=== PATIENT | female | born 1965 | race Caucasian/White ===

== ENCOUNTER → 2024-01-28 19:27 | Outpatient (REF) | payer OTHER, SELFPAY | LOC: WDC 19:27 | PROVIDERS: ATTENDING PHYSICIAN Physician Assistant Medical | DX: Z12.31 Encounter for screening mammogram for malignant neoplasm of breast (principal); R92.30 Dense breasts, unspecified | CPT/HCPCS: 77063; 77067 ==

== ENCOUNTER → 2024-03-21 11:23 | Outpatient (REF) | payer OTHER, SELFPAY | LOC: HWRAD 11:23 | PROVIDERS: ATTENDING PHYSICIAN Student in an Organized Health Care Education/Training Program | DX: M79.672 Pain in left foot (principal); M25.572 Pain in left ankle and joints of left foot | CPT/HCPCS: 73610; 73630 ==

== ENCOUNTER → 2024-04-10 10:20 | Outpatient (REF) | payer OTHER, SELFPAY | LOC: WDC 10:20 | PROVIDERS: ATTENDING PHYSICIAN Obstetrics & Gynecology; FAMILY PHYSICIAN Physician Assistant Medical | DX: R92.2 Inconclusive mammogram (principal); Z80.3 Family history of malignant neoplasm of breast | CPT/HCPCS: 76641 ==

== ENCOUNTER → 2024-11-18 16:14 | Outpatient (REF) | payer OTHER, SELFPAY | LOC: RAD 16:14 | PROVIDERS: ATTENDING PHYSICIAN Chiropractor; FAMILY PHYSICIAN Physician Assistant Medical | DX: M47.9 Spondylosis, unspecified (principal) | CPT/HCPCS: 72050 ==

== ENCOUNTER → 2025-01-29 08:17 | Outpatient (REF) | payer OTHER, SELFPAY | LOC: WDC 08:17 | PROVIDERS: ATTENDING PHYSICIAN Physician Assistant Medical | DX: Z12.31 Encounter for screening mammogram for malignant neoplasm of breast (principal) | CPT/HCPCS: 77063; 77067 ==

== ENCOUNTER → 2025-07-17 09:31 | Outpatient (REF) | payer OTHER, SELFPAY | LOC: WDC 09:31 | PROVIDERS: ATTENDING PHYSICIAN Physician Assistant Medical | DX: R92.2 Inconclusive mammogram (principal) | CPT/HCPCS: 76641 ==